=== PATIENT | female | born 1985 | race African-American/Black ===

== ENCOUNTER 2021-10-26 18:42 | Emergency (ER) | payer MEDICARE, OTHER ==
[~2021-10-26] VITALS: Ht 170.2 cm; Wt 104.0 kg
[2021-10-26] MEDS ORDERED: HYDROCODONE/ACETAMINOPHEN 5/325MG TABLET PO ONE (23:30)
[2021-10-27] MEDS ORDERED: HYDR-4001 MT (00:11)
[2021-10-27 01:11] VITALS: BP 115/75
== END 2021-10-27 01:22 | disposition home or self-care (01) ==
LOC: ER 18:42
DX: S00.83XA Contusion of other part of head, initial encounter (principal); N18.6 End stage renal disease; J45.909 Unspecified asthma, uncomplicated; Z98.890 Other specified postprocedural states; Z90.5 Acquired absence of kidney; Z99.2 Dependence on renal dialysis; W18.2XXA Fall in (into) shower or empty bathtub, initial encounter; Y93.E1 Activity, personal bathing and showering; Y92.012 Bathroom of single-family (private) house as the place of occurrence of the external cause
CPT/HCPCS: 70486; 81025; 99284